=== PATIENT | male | born 1955 | race Two or more races ===

== ENCOUNTER 2018-06-13 20:47 | Emergency (ER) | payer OTHER ==
[~2018-06-13] VITALS: Ht 182.9 cm; Wt 74.8 kg
--- NOTE | 2018-06-13 20:55 | NUR ---
63 yo male bib ra from home. patient is alert and oriented, states he was on a ladder, fell off, landed on his left shoulder. Noted obvious deformities left shoulder, PMS distal to pain site is WNL, cap refill distal to pain site WNL. Patient was DS to er bed by ems. patient gowned,placed on child monitor. awaiting orders from provider, will continue to monitor
--- NOTE | 2018-06-13 20:58 | NUR ---
radilogy at bed side for x ray
[2018-06-13] MEDS ORDERED: KETOROLAC TROMETHAMINE INJ 30 MG/ML VIAL ONE (21:07)
[2018-06-13] MEDS: KETOROLAC TROMETHAMINE INJ 30 MG/ML VIAL IV ONE (21:10)
--- NOTE | 2018-06-13 21:12 | NUR ---
medicated pt as ordered
--- NOTE | 2018-06-13 21:20 | NUR ---
pt placed in left arm sling
[2018-06-13 21:29] VITALS: BP 129/84
--- NOTE | 2018-06-13 21:30 | NUR ---
Patient discharged to home in stable condition. Written and verbal after care instructions given. Patient verbalizes understanding of instruction.IV removed. Catheter intact and site benign. Pressure and 4x4 applied to site. No bleeding noted. pt ambulatory with a steady gait
== END 2018-06-13 21:30 | disposition home or self-care (01) ==
LOC: ER 20:49
DX: S42.212A Unspecified displaced fracture of surgical neck of left humerus, initial encounter for closed fracture (principal); W01.198A Fall on same level from slipping, tripping and stumbling with subsequent striking against other object, initial encounter; Y93.89 Activity, other specified; Y92.89 Other specified places as the place of occurrence of the external cause; Y99.8 Other external cause status
CPT/HCPCS: 73030-TC; A4606; J1885; Z7610